=== PATIENT | male | born 1975 | race Caucasian/White ===

== ENCOUNTER 2020-06-06 08:32 | Inpatient (IN) ==
--- NOTE | 2020-06-06 08:55 | Emergency Department Note ---
History of Present Illness General Chief complaint: Illness Time Seen by Provider: 06/06/20 08:33 History of Present Illness Maximum Pain Intensity: 0 This is a 45-year-old male that presents to the emergency department via ambulance with complaints of "dyspnea on exertion". 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 He notes that he went from an urgent care, to [facility], then was transferred to [facility]. He notes that he was on a ventilator for about a month. He then was at several rehabilitation facilities and is currently at [facility]. He was doing well and able to walk about 100 feet until he felt short of breath. He then notes yesterday he was able to walk 50 feet and then was short of breath and now this morning just with getting ready/dressed notes that he was significantly short of breath, had an O2 sat of 70% while on his chronic 2 L of oxygen via nasal cannula. The patient denies any smoking history. The patient states that once he rests his symptoms dissipate. He denies any fevers, chills, nausea, vomiting or chest pain. Home Medications Medication Instructions Recorded Confirmed Type acetaminophen [Tylenol] 650 mg PO Q4H PRN 06/03/20 06/06/20 History apixaban 5 mg PO BID 06/03/20 06/06/20 History bisacodyl 10 mg FL DAILY PRN 06/03/20 06/06/20 History cholecalciferol (vitamin D3) 50 mcg PO DAILY 06/03/20 06/06/20 History diphenhydramine HCl 25 mg PO BID PRN 06/03/20 06/06/20 History docusate sodium 100 mg PO BID 06/03/20 06/06/20 History magnesium hydroxide [Milk of 30 ml PO DAILY PRN 06/03/20 06/06/20 History Magnesia] melatonin 6 mg PO HS 06/03/20 06/06/20 History metoprolol tartrate 75 mg PO BID 06/03/20 06/06/20 History multivitamin with minerals 1 tab PO DAILY 06/03/20 06/06/20 History [Multiple Vitamin-Minerals] pantoprazole 40 mg PO DAILYBB 06/03/20 06/06/20 History polyethylene glycol 3350 [Miralax] 17 g PO .QLUNCH PRN 06/03/20 06/06/20 History sennosides-docusate sodium 1 tab-cap PO .QLUNCH PRN 06/03/20 06/06/20 History [Senokot-S] trazodone 50 mg PO HS 06/03/20 06/06/20 History tamsulosin [Flomax] 0.4 mg PO HS 06/06/20 06/06/20 History Allergies Allergy/AdvReac Type Severity Reaction Status Date / Time No Known Allergies Allergy Unverified 06/06/20 08:45 Past Med/Surg History Medical History COVID-19 Kidney stones No pertinent family history Pneumonitis Pulmonary embolus Respiratory failure Surgical History No pertinent past surgical history Social History Smoking Status: Never smoker Hx Alcohol Use: No Hx Substance Use: No Preferred Language: Prydeinig Communication Ability: Effective Beliefs That Will Affect Care: None Current Living Situation: Family Current Living Situation Comment: from rehab Feels Safe at Home: Yes Safety Concerns: Feels Safe At This Time Assistive Devices: Oxygen - Continuous and Walker Review of Systems A total of 10 systems reviewed and were otherwise negative Physical Exam Vital Signs Vital Signs - 24 hr 06/06/20 08:37 06/06/20 08:40 06/06/20 08:50 Temperature 36.6 C Temperature Source Oral Pulse Rate 130 H 126 H Pulse Rate [Left Finger] Pulse Rate from SpO2 Sensor 120 H Pulse Rhythm Regular Pulse Rhythm [Left Finger] Respiratory Rate 18 25 H Respiratory Effort / Characteristics Short of Breath Respiratory Depth Blood Pressure 175/101 H 175/101 H Blood Pressure [Left Arm] Blood Pressure Mean 125 125 Blood Pressure Mean [Left Arm] Pulse Oximetry 90 89 L 94 Oxygen Delivery Method Room Air Nasal Cannula Oxygen Flow Rate 3 3 Sepsis Recent Fever Within 48 Hours No Sepsis New/Unexplained Change in Mental Status No Sepsis Action Taken by Nursing Adv Provider Notified 06/06/20 09:10 06/06/20 09:19 06/06/20 09:30 Temperature Temperature Source Pulse Rate 115 H 106 H 103 H Pulse Rate [Left Finger] Pulse Rate from SpO2 Sensor 106 H 101 H Pulse Rhythm Regular Pulse Rhythm [Left Finger] Respiratory Rate 23 25 H 26 H Respiratory Effort / Characteristics Respiratory Depth Blood Pressure 127/78 131/78 Blood Pressure [Left Arm] Blood Pressure Mean 94 95 Blood Pressure Mean [Left Arm] Pulse Oximetry 94 96 96 Oxygen Delivery Method Nasal Cannula Oxygen Flow Rate 3 3 3 Sepsis Recent Fever Within 48 Hours Sepsis New/Unexplained Change in Mental Status Sepsis Action Taken by Nursing 06/06/20 10:00 06/06/20 10:30 06/06/20 11:58 Temperature Temperature Source Pulse Rate 110 H 112 H Pulse Rate [Left Finger] 94 H Pulse Rate from SpO2 Sensor 109 H 111 H Pulse Rhythm Pulse Rhythm [Left Finger] Regular Respiratory Rate 12 21 30 H Respiratory Effort / Characteristics Non-Labored Respiratory Depth Shallow Blood Pressure 133/89 137/85 Blood Pressure [Left Arm] 127/91 Blood Pressure Mean 103 102 Blood Pressure Mean [Left Arm] 103 Pulse Oximetry 96 95 96 Oxygen Delivery Method Nasal Cannula Oxygen Flow Rate 3 3 2 Sepsis Recent Fever Within 48 Hours Sepsis New/Unexplained Change in Mental Status Sepsis Action Taken by Nursing VITAL SIGNS - Vital signs and nursing notes were reviewed. Hypertensive, tachycardic, tachypneic. Afebrile. Borderline hypoxic. GENERAL - 45-year-old male appearing his stated age who is in no acute distress but is mildly short of breath with conversation. Communicates well with provider and answers questions appropriately. SKIN - Without rashes. No meningeal or petechial rash. HEAD - NC/AT. EYES - PERRL with EOMI bilaterally. Sclera anicteric. EARS - No deformities of external structures noted on gross examination bilaterally. NOSE - Midline and without cyanosis. No epistaxis or purulent drainage noted. MOUTH/OROPHARYNX - Without perioral cyanosis. NECK - Neck with FROM. No nuchal rigidity. LUNGS - Chest wall symmetric without accessory muscle use, intercostals retractions, or central cyanosis. Normal vesicular breath sounds CTA B/L. No wheezes, rales, or rhonchi appreciated. CARDIAC - tachycardiac with S1/S2. No murmur, rubs, or gallops appreciated. ABDOMEN - Abdominal contour normal without pulsations or visible masses. BS n ormoactive all four quadrants. No tenderness, palpable masses, hepatosplenomegaly, or ascites noted. EXTREMITIES - No clubbing or peripheral cyanosis. No pretibial edema present. +5/5 strength noted in UE/LE bilaterally. NEUROLOGIC - Cranial nerves II through XII grossly intact. Sensory intact to li ght touch throughout. PSYCH - A&O, and cooperates fully with examiner. Pt is very pleasant and inte racts well with examiner. Course Administered Medications Discontinued Medications Meropenem 500 mg/ Syringe 10 mls @ 2 mls/min IV NOW STA; Protocol Stop: 06/06/20 12:21 Last Admin: 06/06/20 13:22 Dose: 2 mls/min Documented by: [id number] Ioversol (Optiray 320 125ml) 119 ml IV ONCE ONE Stop: 06/06/20 10:25 Last Admin: 06/06/20 10:24 Dose: 119 ml Documented by: [id number] Medical Decision Making Laboratory Data Result diagrams: 06/06/20 09:00 06/06/20 09:00 Lab Results 06/06/20 06/06/20 06/06/20 Range/Units 09:00 09:00 09:00 WBC 7.55 (4.8-10.8) K/uL RBC 4.20 L (4.7-6.1) M/uL Hgb 12.4 L (14.0-18.0) g/dL Hct 38.8 L (42-52) % MCV 92.4 (80-100) fL MCH 29.5 (25-34) pg MCHC 32.0 (32-36) g/dL RDW Std Deviation 47.3 H (36.4-46.3) fL RDW Coeff of Sara 14.0 (11.5-14.5) % Plt Count 229 (130-400) K/uL MPV 9.9 (7.4-10.4) fL Immature Gran % (Auto) 0.1 % Neut % (Auto) 74.6 % Lymph % (Auto) 14.7 % Roosevelt % (Auto) 6.8 % Eos % (Auto) 3.7 % Baso % (Auto) 0.1 % Neut # (Auto) 5.63 (1.4-6.5) K/uL Lymph # (Auto) 1.11 L (1.2-3.4) K/uL Roosevelt # (Auto) 0.51 (0.11-0.59) K/uL Eos # (Auto) 0.28 (0-0.5) K/uL Baso # (Auto) 0.01 (0-0.2) K/uL Immature Gran # (Auto) 0.01 (0.00-0.02) K/uL PT (9.0-12.0) Seconds INR (0.9-1.1) APTT (21.0-31.0) Seconds PTT Ratio Sodium (136-145) mmol/L Potassium (3.5-5.1) mmol/L Chloride (98-107) mmol/L Carbon Dioxide (21-32) mmol/L Anion Gap (3-11) BUN (7-18) mg/dl Creatinine (0.6-1.4) mg/dl Est Cr Clr Drug Dosing ml/min Est GFR ( Amer) Est GFR (Non-Af Amer) BUN/Creatinine Ratio (10-20) Glucose (70-99) mg/dl Lactate 2.7 H* (0.4-2.0) mmol/L Calcium (8.5-10.1) mg/dl Magnesium (1.8-2.4) mg/dl Total Bilirubin (0.2-1) mg/dl AST (15-37) U/L ALT (12-78) U/L Alkaline Phosphatase (45-117) U/L Troponin I (0-0.045) ng/ml NT-Pro-B Natriuret Pep (0-450) pg/ml Total Protein (6.4-8.2) gm/dl Albumin (3.4-5.0) gm/dl Globulin (2.5-4.0) gm/dl Albumin/Globulin Ratio (0.9-2) Procalcitonin < 0.05 (0-0.5) ng/ml TSH (0.300-4.500) uIu/ml COVID-19 Eval Order SARS-CoV-2, RNA, NAAT (NEGATIVE) 06/06/20 06/06/20 06/06/20 Range/Units 09:00 09:00 09:00 WBC (4.8-10.8) K/uL RBC (4.7-6.1) M/uL Hgb (14.0-18.0) g/dL Hct (42-52) % MCV (80-100) fL MCH (25-34) pg MCHC (32-36) g/dL RDW Std Deviation (36.4-46.3) fL RDW Coeff of Sara (11.5-14.5) % Plt Count (130-400) K/uL MPV (7.4-10.4) fL Immature Gran % (Auto) % Neut % (Auto) % Lymph % (Auto) % Roosevelt % (Auto) % Eos % (Auto) % Baso % (Auto) % Neut # (Auto) (1.4-6.5) K/uL Lymph # (Auto) (1.2-3.4) K/uL Roosevelt # (Auto) (0.11-0.59) K/uL Eos # (Auto) (0-0.5) K/uL Baso # (Auto) (0-0.2) K/uL Immature Gran # (Auto) (0.00-0.02) K/uL PT 10.3 (9.0-12.0) Seconds INR 1.0 (0.9-1.1) APTT 24.8 (21.0-31.0) Seconds PTT Ratio 0.9 Sodium 144 (136-145) mmol/L Potassium 3.1 L (3.5-5.1) mmol/L Chloride 109 H (98-107) mmol/L Carbon Dioxide 29 (21-32) mmol/L Anion Gap 6.0 (3-11) BUN 6 L (7-18) mg/dl Creatinine 0.48 L (0.6-1.4) mg/dl Est Cr Clr Drug Dosing 262.0 ml/min Est GFR ( Amer) > 150.0 Est GFR (Non-Af Amer) 135.0 BUN/Creatinine Ratio 12.3 (10-20) Glucose 122 H (70-99) mg/dl Lactate (0.4-2.0) mmol/L Calcium 8.9 (8.5-10.1) mg/dl Magnesium 1.7 L (1.8-2.4) mg/dl Total Bilirubin 0.4 (0.2-1) mg/dl AST 16 (15-37) U/L ALT 30 (12-78) U/L Alkaline Phosphatase 51 (45-117) U/L Troponin I < 0.015 (0-0.045) ng/ml NT-Pro-B Natriuret Pep 59 (0-450) pg/ml Total Protein 6.8 (6.4-8.2) gm/dl Albumin 2.9 L (3.4-5.0) gm/dl Globulin 3.9 (2.5-4.0) gm/dl Albumin/Globulin Ratio 0.7 L (0.9-2) Procalcitonin (0-0.5) ng/ml TSH 1.020 (0.300-4.500) uIu/ml COVID-19 Eval [facility] SARS-CoV-2, RNA, NAAT (NEGATIVE) 06/06/20 06/06/20 Range/Units 09:00 10:45 WBC (4.8-10.8) K/uL RBC (4.7-6.1) M/uL Hgb (14.0-18.0) g/dL Hct (42-52) % MCV (80-100) fL MCH (25-34) pg MCHC (32-36) g/dL RDW Std Deviation (36.4-46.3) fL RDW Coeff of Sara (11.5-14.5) % Plt Count (130-400) K/uL MPV (7.4-10.4) fL Immature Gran % (Auto) % Neut % (Auto) % Lymph % (Auto) % Roosevelt % (Auto) % Eos % (Auto) % Baso % (Auto) % Neut # (Auto) (1.4-6.5) K/uL Lymph # (Auto) (1.2-3.4) K/uL Roosevelt # (Auto) (0.11-0.59) K/uL Eos # (Auto) (0-0.5) K/uL Baso # (Auto) (0-0.2) K/uL Immature Gran # (Auto) (0.00-0.02) K/uL PT (9.0-12.0) Seconds INR (0.9-1.1) APTT (21.0-31.0) Seconds PTT Ratio Sodium (136-145) mmol/L Potassium (3.5-5.1) mmol/L Chloride (98-107) mmol/L Carbon Dioxide (21-32) mmol/L Anion Gap (3-11) BUN (7-18) mg/dl Creatinine (0.6-1.4) mg/dl Est Cr Clr Drug Dosing ml/min Est GFR ( Amer) Est GFR (Non-Af Amer) BUN/Creatinine Ratio (10-20) Glucose (70-99) mg/dl Lactate 1.7 (0.4-2.0) mmol/L Calcium (8.5-10.1) mg/dl Magnesium (1.8-2.4) mg/dl Total Bilirubin (0.2-1) mg/dl AST (15-37) U/L ALT (12-78) U/L Alkaline Phosphatase (45-117) U/L Troponin I (0-0.045) ng/ml NT-Pro-B Natriuret Pep (0-450) pg/ml Total Protein (6.4-8.2) gm/dl Albumin (3.4-5.0) gm/dl Globulin (2.5-4.0) gm/dl Albumin/Globulin Ratio (0.9-2) Procalcitonin (0-0.5) ng/ml TSH (0.300-4.500) uIu/ml COVID-19 Eval Order SARS-CoV-2, RNA, NAAT NEGATIVE (NEGATIVE) Imaging Data Radiologist's Impression: CT ANGIOGRAM OF THE CHEST CLINICAL HISTORY: Dyspnea on exertion. Tachycardia. COMPARISON STUDY: Abdominal CT dated 06/03/2020. TECHNIQUE: Following the IV administration of 119 cc of Optiray 320, CT angiogra m of the chest was performed from the upper abdomen to the thoracic inlet utilizing the pulmonary embolus protocol. Images are reviewed in the axial, sagittal, and coronal planes. 3-D MIPS images are created and assessed. IV contrast was administered without complication. A dose lowering technique was utilized adhering to the principles of ALARA. CT DOSE: 507.29 mGycm FINDINGS: Thyroid: Imaged portions of the thyroid gland are normal in size and attenuation. Thoracic aorta: The thoracic aorta is normal in caliber and demonstrates standard 3-vessel arch anatomy. No dissection is seen. Pulmonary vasculature: The pulmonary trunk is normal in caliber. There are no filling defects identified in main, lobar, or segmental pulmonary branches to suggest pulmonary embolus. Heart: The heart is top normal in size and without pericardial effusion. Lungs and pleural spaces: Evaluation of the lung parenchyma is degraded by motion artifact. Emphysematous change is suggested with a large left apical bleb. There is trace left pleural effusion. Patchy groundglass consolidation is seen throughout both lungs. This appears increased as compared to the 06/03/[address] A 4.2 cm ovoid low-attenuation lesion is seen in the right middle lobe on image #122. This is similar appearance to 06/03/2020 and again shows foci of internal cavitation. A cavitary lesion at the left lung base on image #62 measuring 2.3 cm also similar to previous. A 2.8 cm similar-appearing non- cavitating lesion in the anterior/basilar right middle lobe on image #98 is also unchanged. Subpleural parenchymal scarring/opacities are again seen throughout both lungs. More focal 1.5 cm opacity in the left upper lobe as seen on image #156. There is no associated cavitation. Mediastinum: Scattered subcentimeter mediastinal lymph nodes are not pathologically enlarged by size criteria. Marielena: Clear. Axillae: There is no axillary lymphadenopathy. Upper abdomen: Partially visualized upper abdominal viscera is within normal limits. Skeletal structures: No lytic or blastic bony lesions are seen. Posttraumatic change is seen involving the right third and fourth ribs. IMPRESSION: 1. There is no evidence of pulmonary embolus in the main, lobar, or segmental pulmonary arteries. 2. Suspect underlying emphysema. 3. There is increasing groundglass consolidation throughout both lungs as compared to 06/03/[address] This suggests an infectious/inflammatory pneumonitis and clinical correlation will be required. 4. There has been no significant change in the appearance of 3 large ovoid low density lesions at both lung bases, 2 of which demonstrate foci of internal cavitation. These are likely on an infectious/postinfectious basis (such as cavitary pneumonia), or could represent the sequelae of septic emboli. Neoplasm is considered less likely but not excluded. Continued follow-up to resolution is recommended, as is follow-up with pulmonology. 5. A trace left pleural effusion persists. 6. Additional findings as above. ACT 112: Negative or not required by law. Electronically signed by: Marquis Nguyen M.D. 06/06/2020 10:44 AM MDM Narrative Patient was seen and evaluated as above in room C02. Review was performed of nursing notes and vital signs. I did review pertinent previous visits and patient history. After obtaining a thorough history and physical examination the above work up was performed. Patient presents to us today with hypoxia, dyspnea on exertion with simple activities such as ADLs which is changed from his baseline. On examination he does appear short of breath, is tachycardic. Options of care were discussed with the patient. IV access was established. Labs were drawn. EKG was obtained on arrival and reveals sinus tachycardia rate of [address] elevation. No leukocytosis. Mild anemia with h emoglobin at 12.4. Mild hypokalemia. No evidence of kidney or liver failure. Magnesium 1.7. Covid testing negative. Pro-Albert within normal limits. Initial lactic acid was elevated however recheck was within normal limits. Blood cultures pending. Given the patient's presentation to believe that CT of the chest would be reasonable. There is no PE. There is increase in groundglass consolidation within both lungs compared to CT scan abdomen pelvis performed 06/03/2020. With this change in such a short period of time to believe that further evaluation and management inpatient setting is warranted given the patient's symptoms on presentation. Case discussed with the hospitalist. I did order the patient meropenem as I will note that he [facility] [place] of which I reviewed. Please refer to further documentation regarding his stay. Case was discussed with the attending physician. An order was placed for continuous cardiac monitoring. The monitor shows a rate of 101 with sinus tach rhythm. GCS: 15 In the evaluation and treatment of this patient the following differential diagnoses were entertained: IN, PE, pericarditis, costochondritis, myocarditis, pneumothorax, malignancy, among others. Impression & Plan Pneumonitis, Hypoxia, Dyspnea on exertion, Hypomagnesemia, Hypokalemia Discharge Plan Visit Data Chief Complaint: Illness ED Provider: Sammy Jeong ED Midlevel Provider: Clyde Hernandez Discharge Problem: Pneumonitis, Hypoxia, Dyspnea on exertion, Hypomagnesemia, Hypokalemia Patient Disposition: Admitted As Inpatient Condition: Good Discharge Instructions Interventions: ED Discharge Assessment Last Done: 06/06/20 14:24
[2020-06-06 09:17] LABS: Basophils # (auto) 0.01 K/uL (0-0.2); Basophils % (auto) 0.1 %; Eosinophils # (auto) 0.28 K/uL (0-0.5); Eosinophils % (auto) 3.7 %; Hematocrit (blood only) 38.8 % (42-52); Hemoglobin 12.4 g/dL (14.0-18.0); Immature Granulocytes # (auto) 0.01 K/uL (0.00-0.02); Immature Granulocytes % (auto) 0.1 %; Lymphocytes # (auto) 1.11 K/uL (1.2-3.4); Lymphocytes % (auto) 14.7 %; Mean Corpuscular Hemoglobin 29.5 pg (25-34); Mean Corpuscular Volume 92.4 fL (80-100); Mean Platelet Volume 9.9 fL (7.4-10.4); Monocytes # (auto) 0.51 K/uL (0.11-0.59); Monocytes % (auto) 6.8 %; Neutrophils # (auto) 5.63 K/uL (1.4-6.5); Neutrophils % (auto) 74.6 %; Platelet Count 229 K/uL (130-400); RDW Standard Deviation 47.3 fL (36.4-46.3); White Blood Count 7.55 K/uL (4.8-10.8)
[2020-06-06 09:30] LABS: Partial Thromboplastin Ratio 0.9; Partial Thromboplastin Time 24.8 Seconds (21.0-31.0); Prothrombin Time 10.3 Seconds (9.0-12.0)
[2020-06-06 09:35] LABS: Albumin Level 2.9 gm/dl (3.4-5.0); Blood Urea Nitrogen 6 mg/dl (7-18); Calcium 8.9 mg/dl (8.5-10.1); Carbon Dioxide 29 mmol/L (21-32); Chloride 109 mmol/L (98-107); Glucose 122 mg/dl (70-99); Magnesium 1.7 mg/dl (1.8-2.4); Potassium 3.1 mmol/L (3.5-5.1); Sodium 144 mmol/L (136-145)
[2020-06-06 09:36] LABS: Aspartate Aminotransferase 16 U/L (15-37); BUN Creatinine Ratio 12.3 (10-20); Est GFR (African American) > 150.0
[2020-06-06 09:46] LABS: Alanine Aminotransferase 30 U/L (12-78); Albumin Globulin Ratio 0.7 (0.9-2); Alkaline Phosphatase 51 U/L (45-117); Bilirubin,Total 0.4 mg/dl (0.2-1); Globulin 3.9 gm/dl (2.5-4.0); NT Pro B Type Natriuretic Pept 59 pg/ml (0-450); Total Protein 6.8 gm/dl (6.4-8.2); Troponin I < 0.015 ng/ml (0-0.045)
[2020-06-06] MEDS ORDERED: OPTIRAY 320 125ml IV ONE (10:24)
--- NOTE | 2020-06-06 10:46 | CT Scan Report ---
CT ANGIOGRAM OF THE CHEST CLINICAL HISTORY: Dyspnea on exertion. Tachycardia. COMPARISON STUDY: Abdominal CT dated 06/03/2020. TECHNIQUE: Following the IV administration of 119 cc of Optiray 320, CT angiogram of the chest was pe rformed from the upper abdomen to the thoracic inlet utilizing the pulmonary embolus protocol. Images are reviewed in the axial, sagittal, and coronal planes. 3-D MIPS images are created and assessed. I V contrast was administered without complication. A dose lowering technique was utilized adhering to the principles of ALARA. CT DOSE: 507.29 mGycm FINDINGS: Thyroid: Imaged portions of the thyroid gland are normal in size and attenuation. Thoracic aorta: The thoracic aorta is normal in caliber and demonstrates standard 3-vessel arch anato my. No dissection is seen. Pulmonary vasculature: The pulmonary trunk is normal in caliber. There are no filling defects identif ied in main, lobar, or segmental pulmonary branches to suggest pulmonary embolus. Heart: The heart is top normal in size and without pericardial effusion. Lungs and pleural spaces: Evaluation of the lung parenchyma is degraded by motion artifact. Emphysema tous change is suggested with a large left apical bleb. There is trace left pleural effusion. Patchy groundglass consolidation is seen throughout both lungs. This appears increased as compared to the 02/[address] A 4.2 cm ovoid low-attenuation lesion is seen in the right middle lobe on image #122. This is similar appearance to 06/03/2020 and again shows foci of internal cavitation. A cavitar y lesion at the left lung base on image #62 measuring 2.3 cm also similar to previous. A 2.8 cm simil ar-appearing non-cavitating lesion in the anterior/basilar right middle lobe on image #98 is also unc hanged. Subpleural parenchymal scarring/opacities are again seen throughout both lungs. More focal 1. 5 cm opacity in the left upper lobe as seen on image #156. There is no associated cavitation. Mediastinum: Scattered subcentimeter mediastinal lymph nodes are not pathologically enlarged by size criteria. Marielena: Clear. Axillae: There is no axillary lymphadenopathy. Upper abdomen: Partially visualized upper abdominal viscera is within normal limits. Skeletal structures: No lytic or blastic bony lesions are seen. Posttraumatic change is seen involvin g the right third and fourth ribs. IMPRESSION: 1. There is no evidence of pulmonary embolus in the main, lobar, or segmental pulmonary arteries. 2. Suspect underlying emphysema. 3. There is increasing groundglass consolidation throughout both lungs as compared to 06/03/[address] This suggests an infectious/inflammatory pneumonitis and clinical correlation will be requir ed. 4. There has been no significant change in the appearance of 3 large ovoid low density lesions at bot h lung bases, 2 of which demonstrate foci of internal cavitation. These are likely on an infectious/p ostinfectious basis (such as cavitary pneumonia), or could represent the sequelae of septic emboli. N eoplasm is considered less likely but not excluded. Continued follow-up to resolution is recommended, as is follow-up with pulmonology. 5. A trace left pleural effusion persists. 6. Additional findings as above. ACT 112: Negative or not required by law. Electronically signed by: Marquis Nguyen M.D. 06/06/2020 10:44 AM
[2020-06-06] MEDS ORDERED: MEROPENEM 500 MG in SYRINGE 0 ML IV STA (12:17)
[2020-06-06] MEDS ORDERED: MEROPENEM CONSULT ACITVE PRN (12:17)
--- NOTE | 2020-06-06 12:46 | History & Physical Report ---
Date of Service June 06, 2020 Assessment & Plan (1) Acute respiratory failure with hypoxia: -Admit to [facility] -Patient found to be hypoxic on 2 L with O2 sats in the 70s, use of accessory muscles, heart rate elevated into the 130s and 140s on arrival to the ER -Patient was previously treated with meropenem for possible lung abscess during his [facility] stay, started meropenem here in the ER, continue for now, then likely can dc -Afebrile, WBC = 7.55, lactic acid 1.7, follow BCx x 2 -COVID-19 negative on admission -Flutter, incentive spirometry -Start on prednisone 40 mg daily for suspected pneumonitis, O2 sats mid 90s at bedside during exam. -Mag 1.7, will replace with IV -CTA negative for PE, suspected underlying emphysema, increasing groundglass consolidation throughout both lungs compared to 06/03/2020, trace left pleural effusion which is known from previously. -Pulmonology consulted (2) History of COVID-19: -History of such in late February early March, see HPI -Negative on admission (3) Pneumonia due to COVID-19 virus: -Status post IV meropenem x 2+ weeks, last dose was on May 06 from [facility]. -CTA of the chest reviewed as above, concerning for pneumonitis (4) Obesity: -Patient reports weight loss of approximately 70 pounds -BMI 35 -Encourage PT/OT, consults placed, ambulating with a walker after prolonged hospitalization (5) Pulmonary embolus: -History of such, continue Eliquis -Patient placed on metoprolol 75 mg twice daily for heart rate control, continue, HR remains in 90s during my eval and with strength testing and sitting up in bed. - Neg troponin, trend x 2 more sets (6) Hypomagnesemia: -1.7 on admission, will replace via IV with 2 g to start, may require additional. -Possible that replacement may improve respiratory status (7) Hypokalemia: -K = 3.1, replace orally -Follow a.m. labs (8) DVT prophylaxis: - Clem toth CODE: Full code Dispo: From home, likely to remain in the hospital x 2 days. CM to assist with discharge planning back to [facility]. History of Present Illness Primary Care Provider: Torito Bhatt, DO This is a 45-year-old male with PMHx of history of COVID-19 infection in late February into March, works in the [email or web address] business, and admits that on April 03 accidentally inhaled metal particles while working without wearing respiratory mask, causing respiratory sequelae. After that point in time, he [facility], where he was referred to [facility] where he was then diagnosed with Covid 19 and was sent to [place] subsequently requiring intubation. His hospital course was prolonged at [facility], where he was hospitalized from 04/08-05/07. He was found to have a suspected lung abscess which was treated with meropenem x3 weeks,, developed pulmonary embolism and started on Eliquis needing to be given x3 months, and completed treatment with remdesivir, Decadron and antibiotics for COVID-19 pneumonia. During his hospitalization, extubated trialed on 3 separate trials, successful the last time. He was discharged to [facility] for pulmonary rehab. After 2 week stay there he was discharged for inpatient PT/OT. The patient arrived to [facility] on 05/27/20, and has been doing inpatient rehab there. He was very successful and advancing well until last Saturday, 06/03, where he developed Left flank pain, was sent to the ER and diagnosed with a kidney stone. His pain is minimal at this point, localized to the LLQ. No hematuria or dysuria, urine is slightly dark. He was sent back to [facility] for the weekend however did not participate in therapy on Saturday. On Saturday he noticed worsening dyspnea on exertion. Previously, he able to walk 100 feet without feeling any significant shortness of breath with a walker. This morning he was evaluated by OT and being graded for ADLs, but he was barely able to dress himself without significant exertion. His O2 sats dropped to the 70s while he was on 2 L via NC. Here in the ER he is found to be 89% on 2 L with heart rates in the 130s to 140s with minimal exertion. CTA conducted shows groundglass opacities despite previous treatment therapies, it was negative for PE however does identify old septic pulmonary emboli. CT abdomen and pelvis reveals known nephrolithiasis. Speaking of this, he was in the ER approximately 3 days ago where he was diagnosed with nephrolithiasis. He has been treated with meropenem IV here in the ER. Allergies Allergy/AdvReac Type Severity Reaction Status Date / Time No Known Allergies Allergy Unverified 06/06/20 08:45 Home Medications Medication Instructions Recorded Confirmed Type acetaminophen [Tylenol] 650 mg PO Q4H PRN 06/03/20 06/06/20 History apixaban 5 mg PO BID 06/03/20 06/06/20 History bisacodyl 10 mg [place] DAILY PRN 06/03/20 06/06/20 History cholecalciferol (vitamin D3) 50 mcg PO DAILY 06/03/20 06/06/20 History diphenhydramine HCl 25 mg PO BID PRN 06/03/20 06/06/20 History docusate sodium 100 mg PO BID 06/03/20 06/06/20 History magnesium hydroxide [Milk of 30 ml PO DAILY PRN 06/03/20 06/06/20 History Magnesia] melatonin 6 mg PO HS 06/03/20 06/06/20 History metoprolol tartrate 75 mg PO BID 06/03/20 06/06/20 History multivitamin with minerals 1 tab PO DAILY 06/03/20 06/06/20 History [Multiple Vitamin-Minerals] pantoprazole 40 mg PO DAILYBB 06/03/20 06/06/20 History polyethylene glycol 3350 [Miralax] 17 g PO .QLUNCH PRN 06/03/20 06/06/20 History sennosides-docusate sodium 1 tab-cap PO .QLUNCH PRN 06/03/20 06/06/20 History [Senokot-S] trazodone 50 mg PO HS 06/03/20 06/06/20 History tamsulosin [Flomax] 0.4 mg PO HS 06/06/20 06/06/20 History Past Med/Surg History Medical History (Updated 06/06/20 @ 16:54 by Garry Wooten MD) COVID-19 Kidney stones Lung abscess No pertinent family history Pneumonitis Pulmonary embolus Respiratory failure Surgical History No pertinent past surgical history Social History Smoking Status: Never smoker Hx Alcohol Use: No Hx Substance Use: No Preferred Language: Arabic Communication Ability: Effective Beliefs That Will Affect Care: None Current Living Situation: Family Current Living Situation Comment: from rehab Feels Safe at Home: Yes Safety Concerns: Feels Safe At This Time Assistive Devices: Oxygen - Continuous and Walker Review of Systems Review of Systems: Constitutional: No fever, sweats or chills, Reports 70 lb weight loss since Mar. Eyes: No diplopia, no worsening or blurred vision ENT: normal hearing, no trouble swallowing Respiratory:As per HPI. Occasional cough, no sputum, no dyspnea at rest Cardiovascular: No chest pain, tightness or palpitations Abdomen: No pain, nausea, vomiting, diarrhea or constipation. Typically has 2-3 BM daily, last time was on 06/05 Musculoskeletal: No joint pain, calf pain, or swelling Neurologic: +Improving LE weakness, +numbness/tingling improved with gabapentin,+ using walker for balance problems Psychiatric: No anxiety or depression Skin: No rash or itch Physical Exam Physical Exam: General: awake, alert, no apparent distress, obese, BMI 35 Head: Normocephalic, atraumatic ENT: PERRL, EOMI, no pharyngeal exudate, mucous membranes moist Chest: Clear to auscultation. diminished at left base, on 2 L via NC with O2 sat at 96%, no adventitious breath sounds Cardiac: Regular rate and rhythm, no murmur, no JVD, normal peripheral pulses, good capillary refill Abdominal: NABS x 4 quadrants, soft, nondistended, nontender to palpation, no rebound or guarding Extremities: Normal inspection, no peripheral edema or erythema, calfs nontender to palpation Psych: Normal mood and affect Neuro: AAO x 3, strength intact bilaterally and rated 5/5, no motor deficits, speech is clear, no peripheral sensory deficits Results & Data Results & Data ([facility]) Vital Signs (Past 12 Hours) Vital Signs Temp Pulse Pulse Resp BP BP Pulse Ox 06/06/20 11:58 94 H 30 H 127/91 96 06/06/20 10:30 112 H 21 137/85 95 06/06/20 10:00 110 H 12 133/89 96 06/06/20 09:30 103 H 26 H 131/78 96 06/06/20 09:19 106 H 25 H 127/78 96 06/06/20 09:10 115 H 23 94 06/06/20 08:50 94 06/06/20 08:40 36.6 C 126 H 25 H 175/101 H 89 L 06/06/20 08:37 130 H 18 175/[address] ANGIOGRAM OF THE CHEST CLINICAL HISTORY: Dyspnea on exertion. Tachycardia. COMPARISON STUDY: Abdominal CT dated 06/03/2020. TECHNIQUE: Following the IV administration of 119 cc of Optiray 320, CT angiogram of the chest was performed from the upper abdomen to the thoracic inlet utilizing the pulmonary embolus protocol. Images are reviewed in the axial, sagittal, and coronal planes. 3-D MIPS images are created and assessed. IV contrast was administered without complication. A dose lowering technique was utilized adhering to the principles of ALARA. CT DOSE: 507.29 mGycm FINDINGS: Thyroid: Imaged portions of the thyroid gland are normal in size and attenuation. Thoracic aorta: The thoracic aorta is normal in caliber and demonstrates standard 3-vessel arch anatomy. No dissection is seen. Pulmonary vasculature: The pulmonary trunk is normal in caliber. There are no filling defects identified in main, lobar, or segmental pulmonary branches to suggest pulmonary embolus. Heart: The heart is top normal in size and without pericardial effusion. Lungs and pleural spaces: Evaluation of the lung parenchyma is degraded by motion artifact. Emphysematous change is suggested with a large left apical bleb. There is trace left pleural effusion. Patchy groundglass consolidation is seen throughout both lungs. This appears increased as compared to the 06/03/[address] A 4.2 cm ovoid low-attenuation lesion is seen in the right middle lobe on image #122. This is similar appearance to 06/03/2020 and again shows foci of internal cavitation. A cavitary lesion at the left lung base on image #62 measuring 2.3 cm also similar to previous. A 2.8 cm similar-appearing non- cavitating lesion in the anterior/basilar right middle lobe on image #98 is also unchanged. Subpleural parenchymal scarring/opacities are again seen throughout both lungs. More focal 1.5 cm opacity in the left upper lobe as seen on image #156. There is no associated cavitation. Mediastinum: Scattered subcentimeter mediastinal lymph nodes are not pathologically enlarged by size criteria. Marielena: Clear. Axillae: There is no axillary lymphadenopathy. Upper abdomen: Partially visualized upper abdominal viscera is within normal limits. Skeletal structures: No lytic or blastic bony lesions are seen. Posttraumatic change is seen involving the right third and fourth ribs. IMPRESSION: 1. There is no evidence of pulmonary embolus in the main, lobar, or segmental pulmonary arteries. 2. Suspect underlying emphysema. 3. There is increasing groundglass consolidation throughout both lungs as compared to 06/03/[address] This suggests an infectious/inflammatory pneumonitis and clinical correlation will be required. 4. There has been no significant change in the appearance of 3 large ovoid low density lesions at both lung bases, 2 of which demonstrate foci of internal cavitation. These are likely on an infectious/postinfectious basis (such as cavitary pneumonia), or could represent the sequelae of septic emboli. Neoplasm is considered less likely but not excluded. Continued follow-up to resolution is recommended, as is follow-up with pulmonology. 5. A trace left pleural effusion persists. 6. Additional findings as above. CT SCAN OF THE ABDOMEN AND PELVIS WITHOUT IV CONTRAST CLINICAL HISTORY: Left flank pain. COMPARISON STUDY: No priors. TECHNIQUE: CT scan of the abdomen and pelvis is performed from the lung bases to the proximal femora. Images are reviewed in the axial, sagittal, and coronal planes. IV contrast was not administered for this examination. A dose lowering technique was utilized adhering to the principles of ALARA. CT DOSE: 1372.74 mGy.cm FINDINGS: Lung bases: The heart is normal in size and without pericardial effusion. There is trace left pleural effusion. Subpleural groundglass change is seen at both lung bases with foci of subpleural parenchymal scarring. There is a 4.5 cm low- attenuation ovoid lesion in the right middle lobe with cavitation seen on image #6. An additional 3.1 cm low-attenuation ovoid lesion in the right middle lobe on image #29 does not show cavitation. A 2.6 cm cavitary nodule is suggested at the posterior left lung base on image #79 Liver: The unenhanced liver is normal in size, contour, and attenuation. There is no intrahepatic biliary ductal dilatation. Gallbladder: Surgically absent noting clips in the gallbladder fossa. Spleen: Normal in size and attenuation. Pancreas: Unremarkable. Adrenal glands: Unremarkable. Kidneys: The unenhanced kidneys are normal in size. There is a 3 mm obstructing calculus in the distal left ureter seen just above the vesicoureteral junction on image #465. This causes mild left hydroureteronephrosis. There is an additional 5 mm nonobstructing left renal calculus. No right renal calculi are identified and there is no right-sided hydronephrosis. There is no evidence of contour deforming renal mass lesion. Abdominal vasculature: The abdominal aorta is normal in course and caliber. Bowel: There is no bowel obstruction. The appendix is well-visualized and normal. Peritoneum: There is no intraperitoneal free air or abdominal ascites. There is a fat-containing umbilical hernia. Lymphadenopathy: None. Pelvic viscera: The bladder, prostate, and seminal vesicles are normal as visualized. There are small bilateral fat-containing inguinal hernias. Skeletal structures: No lytic or blastic lesions are seen. IMPRESSION: 1. There is a 3 mm obstructing calculus in the distal left ureter which causes mild left hydroureteronephrosis. 2. There is an additional nonobstructing left renal calculus. 3. No right renal calculi are identified. 4. There is groundglass change with foci of subpleural parenchymal scarring at both lung bases. This may represent an infectious/inflammatory pneumonitis, or possibly the sequelae of a recent viral pneumonia. Clinical correlation will be essential. 5. There are 3 large ovoid low density lesions at both lung bases, 2 of which demonstrate foci of internal cavitation. These may also be on an infectious /postinfectious basis (cavitary pneumonia), or could potentially represent septic emboli. Neoplasm is considered much less likely but not excluded. Clinical correlation will be essential, and follow-up to resolution is recommended. Consider nonemergent pulmonology consultation. 6. Trace left pleural effusion. 7. Additional findings as above. ECG Additional Comments: 06-JUN-2020 08:36:53 [facility]-EDSTAT ROUTINE RETRIEVAL Poor data quality, interpretation may be adversely affected Sinus tachycardia Left ventricular hypertrophy with repolarization abnormality Abnormal ECG When compared with ECG of 03-JUN-2020 20:42, No significant change was found 25mm/s 10mm/mV 150Hz 9.0.9 12SL 241 ROBERTO: 16 Unconfirmed Vent. rate 123 BPM TX interval 144 ms QRS duration 84 ms QT/QTc 322/460 ms Code Status & VTE Plan Code Status Full -discussed with the patient and his at bedside Supervising Physician Co-Signing Physician Notes I have seen and examined the patient and have discussed the case with the provider above. I agree with the assessment and plan as stated. 45 yo M with prolonged hospitalization and complicated pulmonary situation presented with worsening hypoxia, SOB with exertion and worsening ground glass opacities seen on bilateral lung bases on CTA. (see supplemental notes) Physical exam reveals an obese man in no distress without increased work of breathing and no conversational dyspnea. Lungs are CTAB, heart rate is regular, S1/2 heard without murmurs. Abdomen benign. No edema. Euvolemic. Plan to transfer to [facility]. DO Adán
[2020-06-06] MEDS ORDERED: POTASSIUM CHLORIDE CRTAB 20 MEQ TABCR PO STA (13:34)
[2020-06-06] MEDS ORDERED: predniSONE 20 MG TAB PO SCH (13:45)
[2020-06-06] MEDS ORDERED: POLYETHYLENE (MIRALAX) 17 GM PACK PO PRN (14:23)
[2020-06-06] MEDS ORDERED: diphenhydrAMINE Capsule 25 MG CAP PO PRN (14:23)
[2020-06-06] MEDS ORDERED: bisacodyL 10 MG SUPP PR PRN (14:23)
[2020-06-06] MEDS ORDERED: MAGNESIUM HYDROXIDE SUSP 30 ML UDC PO PRN (14:23)
[2020-06-06] MEDS ORDERED: ACETAMINOPHEN 325 MG TAB PO PRN (14:23)
[2020-06-06] MEDS ORDERED: ONDANSETRON INJ 2 MG/ML 2 ML VIAL IV PRN (14:23)
[2020-06-06] MEDS ORDERED: DOCUSATE SODIUM/SENNA 50/8.6MG TAB PO SCH (15:00)
[2020-06-06] MEDS: MAGNESIUM SULFATE / D5W 1 GM/100 ML BAG IV SCH ×2 (15:59→18:15)
--- NOTE | 2020-06-06 16:49 | Pulmonary Consultation ---
Date of Consultation June 06, 2020 Assessment & Plan (1) Acute respiratory failure with hypoxia: 45-year-old male with a past medical history of recent COVID-19 illness, pulmonary embolism, obesity, septic emboli, spontaneous pneumothorax, prolonged ICU hospitalization, critical illness myopathy and hypertension presenting to the hospital due to shortness of breath. I suspect the patient's symptoms are multifactorial related to the groundglass opacities seen on CT chest, recent multifocal pulmonary emboli, obesity, severe deconditioning and multifocal lung abscess. Lung abscesses: Would recommend infectious disease consultation. Obtain blood cultures and echocardiogram. Continue meropenem. MRSA screen (-). There is a pleural effusion noted on the left which is trace. It is unclear whether this is infected and represents an empyema. Patient may need aspiration of a lung abscess to help determine specific antibiotic therapy. This will need to occur in a tertiary care center such as [facility] in [place]. I did discuss the case with thoracic surgery who did not feel that surgery is warranted at this time unless there is timothy evidence of empyema. Groundglass attenuation diffuse/pneumonitis: Unclear etiology, but likely resolving COVID-19 pneumonitis. Heavy metal pneumonitis/hypersensitivity pneumonitis difficult to rule out. Patient may require a lung biopsy to help determine the etiology of the groundglass opacity. Bronchoscopy can be considered prior to biopsy to rule out further infectious etiology. Would hold on any further steroids at this point given the concern for acute bacterial infection. Severe deconditioning critical illness myopathy: Continue physical therapy and Occupational Therapy. Likely secondary to prolonged hospitalization. History of pulmonary embolism: Would recommend 3 to 6 months of anticoagulation. Likely provoked from his hypercoagulable state related to COVID-19. I had a lengthy discussion with the patient and his . I also had a lengthy discussion with patient's hospitalist and thoracic surgery in [place]. I did recommend a multidisciplinary approach at a tertiary Medical Center at this time. (2) Dyspnea on exertion: (3) Hypoxia: (4) Pulmonary embolus: Pulmonary embolism type: other Chronicity: chronic Acute cor pulmonale presence: unspecified Qualified Code(s): I27.82 - Chronic pulmonary embolism (5) Obesity: Obesity type: due to excess calories Body mass index: BMI 33.0- 33.9 Serious obesity comorbidity presence: with serious comorbidity (6) Pneumonia due to COVID-19 virus: (7) Pneumonitis: (8) Lung abscess: History of Present Illness Reason for Consultation: Multifocal pulmonary abscess Attending Physician: Laura Mccain DO History of Present Illness 45-year-old male with a past medical history of obesity presenting to the hospital due to increasing shortness of breath and fatigue. Notably, the patient had a lengthy hospitalization at [facility] in [facility] for acute COVID-19 infection, right spontaneous pneumothorax, right-sided lung abscess, critical illness myopathy and pulmonary embolism. He was also intubated for an extended period of time. Fortunately, he did not require tracheostomy. Notably he had an iatrogenic placement of a pneumothorax catheter subdiaphragm on 04/17 which was then replaced without incident. Patient does not recall much of the history from [facility]. His is present today. I was able to review the records from [facility]. He did have extensive groundglass changes with a spontaneous right pneumo on the CT chest from 04/17. 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 He denies any tobacco use. No exotic pet exposures including birds. Allergies Allergy/AdvReac Type Severity Reaction Status Date / Time No Known Allergies Allergy Unverified 06/06/20 08:45 Home Medications Medication Instructions Recorded Confirmed Type acetaminophen [Tylenol] 650 mg PO Q4H PRN 06/03/20 06/06/20 History apixaban 5 mg PO BID 06/03/20 06/06/20 History bisacodyl 10 mg LA DAILY PRN 06/03/20 06/06/20 History cholecalciferol (vitamin D3) 50 mcg PO DAILY 06/03/20 06/06/20 History diphenhydramine HCl 25 mg PO BID PRN 06/03/20 06/06/20 History docusate sodium 100 mg PO BID 06/03/20 06/06/20 History magnesium hydroxide [Milk of 30 ml PO DAILY PRN 06/03/20 06/06/20 History Magnesia] melatonin 6 mg PO HS 06/03/20 06/06/20 History metoprolol tartrate 75 mg PO BID 06/03/20 06/06/20 History multivitamin with minerals 1 tab PO DAILY 06/03/20 06/06/20 History [Multiple Vitamin-Minerals] pantoprazole 40 mg PO DAILYBB 06/03/20 06/06/20 History polyethylene glycol 3350 [Miralax] 17 g PO .QLUNCH PRN 06/03/20 06/06/20 History sennosides-docusate sodium 1 tab-cap PO .QLUNCH PRN 06/03/20 06/06/20 History [Senokot-S] trazodone 50 mg PO HS 06/03/20 06/06/20 History tamsulosin [Flomax] 0.4 mg PO HS 06/06/20 06/06/20 History Patient History Medical History COVID-19 Kidney stones No pertinent family history Pneumonitis Pulmonary embolus Respiratory failure Surgical History No pertinent past surgical history Social History Smoking Status: Never smoker Hx Alcohol Use: No Hx Substance Use: No Preferred Language: Paraguayan Communication Ability: Effective Beliefs That Will Affect Care: None Current Living Situation: Family Current Living Situation Comment: from rehab Feels Safe at Home: Yes Safety Concerns: Feels Safe At This Time Assistive Devices: Oxygen - Continuous and Walker Review of Systems Review of Systems: All systems reviewed & are unremarkable except as noted in HPI & below Physical Exam Constitutional: Obese appearing male in mild distress. Not using any accessory muscles. Nasal cannula in place. Eyes: PERRL, conjunctivae normal, anicteric sclerae ENMT: external ear and nose normal, oropharynx normal Respiratory: Diminished bilaterally. Mild rhonchi noted bilaterally. No use of accessory muscles. Cardiovascular: RRR, no murmur, no edema Gastrointestinal (Abdomen): normal bowel sounds, soft, nontender, no hepatosplenomegaly Musculoskeletal: Diffusely weak in the upper and lower extremities. No clubbing. Skin: no rashes, warm and dry Neurologic: CN's II-XI intact bilaterally Psychiatric: A+Ox3, euthymic affect Results & Data Results & Data ([facility]) Vital Signs (Past 12 Hours) Vital Signs Temp Pulse Pulse Resp BP BP BP 06/06/20 14:28 97.5 F L 101 H 22 144/91 H 06/06/20 14:24 89 30 H 165/77 H 06/06/20 13:00 90 27 H 134/96 06/06/20 11:58 94 H 30 H 127/91 06/06/20 10:30 112 H 21 137/85 06/06/20 10:00 110 H 12 133/89 06/06/20 09:30 103 H 26 H 131/78 06/06/20 09:19 106 H 25 H 127/78 06/06/20 09:10 115 H 23 06/06/20 08:50 06/06/20 08:40 97.9 F 126 H 25 H 175/101 H 06/06/20 08:37 130 H 18 175/101 H Pulse Ox 06/06/20 14:28 94 06/06/20 14:24 95 06/06/20 13:00 96 06/06/20 11:58 96 06/06/20 10:30 95 06/06/20 10:00 96 06/06/20 09:30 96 06/06/20 09:19 96 06/06/20 09:10 94 06/06/20 08:50 94 06/06/20 08:40 89 L 06/06/20 08:37 90 I reviewed the records from [facility], personally reviewed the CT chest imaging, labs and vital signs. PG Care Time/CCT Total # of Minutes Spent Total Time Spent with Patient: Total time spent is greater than 50% in coordination of care (as documented) at patient's floor/unit and/or counseling patient: Coding Level of Care Code 76986 Inpt Consult Level 5 Diagnoses Acute respiratory failure with hypoxia J96.01 Dyspnea on exertion R06.00 Hypoxia R09.02 Pulmonary embolus I27.82 Pulmonary embolism type: other Chronicity: chronic Acute cor pulmonale presence: unspecified Obesity E66.9 Obesity type: due to excess calories Body mass index: BMI 33.0-33.9 Serious obesity comorbidity presence: with serious comorbidity Pneumonia due to COVID-19 virus U07.1; J12.82 Pneumonitis J18.9 Lung abscess J85.2
--- NOTE | 2020-06-06 19:15 | Communication Note ---
Date of Service: June 06, 2020 TRANSFER SUMMARY: Current Inpatient Medications Acetaminophen (Acetaminophen 325 Mg Tab) 650 mg PO Q4H PRN PRN Reason: Pain (Scale Score 1-3) Stop: 07/06/20 14:22 Apixaban (Apixaban 5 Mg Tablet) 5 mg PO BID [facility] Stop: 07/06/20 20:59 Bisacodyl (Bisacodyl 10 Mg Supp) 10 mg AK DAILY PRN PRN Reason: Constipation Stop: 07/06/20 14:22 Diphenhydramine HCl (Diphenhydramine Capsule 25 Mg Cap) 25 mg PO BID PRN PRN Reason: Itching Stop: 07/06/20 14:22 Docusate Sodium (Docusate Sodium 100 Mg Cap) 100 mg PO BID [facility] Stop: 07/06/20 20:59 Meropenem 500 mg/ Syringe 10 mls @ 2 mls/min IV Q6H [facility]; Protocol Stop: 06/13/20 19:59 Magnesium Hydroxide (Magnesium Hydroxide Susp 30 Ml Udc) 30 ml PO DAILY PRN PRN Reason: Constipation Stop: 07/06/20 14:22 Melatonin (Melatonin 3 Mg Tab) 6 mg PO HS [facility] Stop: 07/06/20 20:59 Metoprolol Tartrate (Metoprolol Tartrate 25 Mg Tab) 75 mg PO BID [facility] Stop: 07/06/20 20:59 Miscellaneous Information (Meropenem Consult Acitve) 1 ea N/A UD PRN PRN Reason: Consult Stop: 07/06/20 12:16 Multivitamins/Minerals (Cerovite Adv Formula Tab) 1 tab PO DAILY [facility] Stop: 07/07/20 08:59 Ondansetron HCl (Ondansetron Inj 2 Mg/Ml 2 Ml Vial) 4 mg IV Q4H PRN PRN Reason: Nausea And Vomiting Stop: 07/06/20 14:22 Pantoprazole Sodium (Pantoprazole 40 Mg Tab) 40 mg PO DAILYBB [facility] Stop: 07/07/20 06:29 Polyethylene Glycol (Polyethylene (Miralax) 17 Gm Pack) 17 gm PO QDL PRN PRN Reason: Constipation Stop: 07/06/20 14:22 Senna/Docusate Sodium (Docusate Sodium/Senna 50/8.6mg Tab) 1 tab PO QDL [facility] Stop: 07/06/20 14:59 Last Admin: 03/15/21 16:01 Dose: 1 tab Documented by: Tamsulosin HCl (Tamsulosin Hcl 0.4 Mg Cap) 0.4 mg PO HS [facility] Stop: 07/06/20 20:59 Trazodone HCl (Trazodone Hcl 50 Mg Tab) 50 mg PO HS [facility] Stop: 07/06/20 20:59 Vitamin D (Cholecalciferol 1,000 Units 25 Mcg Tab) 2,000 units PO DAILY [facility] Stop: 07/07/20 08:59 The patient is a 45-year-old man presenting to the hospital with increased shortness of breath and fatigue. He recently had a lengthy hospitalization at [facility] in [place] for acute COVID-19 infection with intubation. His hospital course was complicated by right spontaneous pneumothorax, right sided lung abscess and critical illness myopathy with pulmonary embolism. He was also asked intubated for an extended period of time and did not require tracheostomy. He also had an iatrogenic placement of a pneumothorax catheter subdiaphragm on 04/17 which was then replaced without incident. The patient was discharged to an LTAC for continued pulmonary rehab and then a couple weeks later [facility] from where he presents. In the last 48 hours he began noticing worsening dyspnea on exertion. Specifically he was able to walk 100 feet without feeling any significant shortness of breath with a walker however this morning when evaluated by Occupational Therapy he was barely able to dress himself without significant exertion. His oxygen sats notably dropped in the 70s while he was on 2 L/min of oxygen supplementation via nasal cannula. In the ER he was found to be 89% on 2 L/min oxygen supplementation with heart rates in the 130s to 140s with minimal exertion. His heart rate come down to the low 100s at rest. A CTA of the chest revealed no evidence of pulmonary embolus in the main lobar or segmental segmental pulmonary arteries with increasing groundglass consolidation throughout the lungs on both sides as compared to 06/03/[address] This was suggestive of infectious/inflammatory pneumonitis. 3 large ovoid low- density lesions at both lung bases consistent with cavitary pneumonia or sequelae of septic emboli are present with neoplasm considered less likely but not excluded. A trace left pleural effusion was also persistent. He was admitted to the hospitalist service and given 1 dose of prednisone 40 mg. Meropenem was given for concern of infection. Pulmonary was consulted. The pulmonary recommendation was strongly in support of transferring to a tertiary care center and her forest economics professor did discuss the case with the thoracic surgeon on-call at [facility] who did not feel surgery was warranted at this time unless there was timothy evidence of an empyema. The patient does have resolving COVID-19 pneumonitis and has had a history of heavy metal pneumonitis/hypersensi tivity pneumonitis which is difficult to rule out at this time. He may require a lung biopsy at some point to determine the etiology of the groundglass opacity which would not be something offered at this institution. Bronchoscopy may also be considered prior to biopsy to rule out further infectious etiology. Steroids were discontinued given the concern for acute bacterial infection. At time of discharge she was still tachycardic with a heart rate in the low 100s, blood pressure was stable and he was mentating and ambulating at baseline and tolerating p.o. He was discharged to [facility] into the care of the hospitalist service with the accepting physician Dr. Gonzalez. Laura Mccain DO [facility] Hospitalist
--- NOTE | 2020-06-06 19:20 | Discharge Summary ---
Date of Service June 06, 2020 Admission HPI Per Admitting Provider This is a 45-year-old male with PMHx of history of COVID-19 infection in late February into March, works in the [employer] business, and admits that on April 03 accidentally inhaled metal particles while working without wearing respiratory mask, causing respiratory sequelae. After that point in time, he sought care at a [facility], where he was referred to [facility] where he was then diagnosed with Covid 19 and was sent to [place] subsequently requiring intubation. His hospital course was prolonged at [facility], where he was hospitalized from 04/08-05/07. He was found to have a suspected lung abscess whic h was treated with meropenem x3 weeks,, developed pulmonary embolism and started on Eliquis needing to be given x3 months, and completed treatment with remdesivir, Decadron and antibiotics for COVID-19 pneumonia. During his hospitalization, extubated trialed on 3 separate trials, successful the last time. He was discharged to [facility] for pulmonary rehab. After 2 week stay there he was discharged for inpatient PT/OT. The patient arrived to [facility] on 05/27/20, and has been doing inpatient rehab there. He was very successful and advancing well until last Saturday, 06/03, where he developed Left flank pain, was sent to the ER and diagnosed with a kidney stone. His pain is minimal at this point, localized to the LLQ. No hematuria or dysuria, urine is slightly dark. He was sent back to [facility] for the weekend however did not participate in therapy on Saturday. On Saturday he noticed worsening dyspnea on exertion. Previously, he able to walk 100 feet without feeling any significant shortness of breath with a walker. This morning he was evaluated by OT and being graded for ADLs, but he was barely able to dress himself without significant exertion. His O2 sats dropped to the 70s while he was on 2 L via NC. Here in the ER he is found to be 89% on 2 L with heart rates in the 130s to 140s with minimal exertion. CTA conducted shows groundglass opacities despite previous treatment therapies, it was negative for PE however does identify old septic pulmonary emboli. CT abdomen and pelvis reveals known nephrolithiasis. Speaking of this, he was in the ER approximately 3 days ago where he was diagnosed with nephrolithiasis. He has been treated with meropenem IV here in the ER. Admission Exam Per Admitting Provider General: awake, alert, no apparent distress, obese, BMI 35 Head: Normocephalic, atraumatic ENT: PERRL, EOMI, no pharyngeal exudate, mucous membranes moist Chest: Clear to auscultation. diminished at left base, on 2 L via NC with O2 sat at 96%, no adventitious breath sounds Cardiac: Regular rate and rhythm, no murmur, no JVD, normal peripheral pulses, good capillary refill Abdominal: NABS x 4 quadrants, soft, nondistended, nontender to palpation, no rebound or guarding Extremities: Normal inspection, no peripheral edema or erythema, calfs nontender to palpation Psych: Normal mood and affect Neuro: AAO x 3, strength intact bilaterally and rated 5/5, no motor deficits, speech is clear, no peripheral sensory deficits Principal Diagnosis Acute hypoxic respiratory failure post COVID pneumonitis Lung abscesses Discharge Data Allergies Allergy/AdvReac Type Severity Reaction Status Date / Time No Known Allergies Allergy Unverified 06/06/20 08:45 Consultations 06/06/20 11:24 ED Decision to Admit Stat 06/06/20 14:08 Consult Pulmonology Routine 06/06/20 14:23 Consult Case Management - Discharge Planning Routine 06/06/20 19:05 Burn CD for patient Stat Ordered Studies 06/06/20 08:50 CT angio chest PE protocol Stat Hospital Course (1) Acute respiratory failure with hypoxia: (2) Pneumonitis: (3) History of COVID-19: (4) Obesity: (5) Pulmonary embolus: (6) Hypomagnesemia: (7) Hypokalemia: The patient is a 45-year-old man presenting to the hospital with increased shortness of breath and fatigue. He recently had a lengthy hospitalization at [facility] in [place] for acute COVID-19 infection with intubation. His hospital course was complicated by right spontaneous pneumothorax, right sided lung abscess and critical illness myopathy with pulmonary embolism. He was also asked intubated for an extended period of time and did not require tracheostomy. He also had an iatrogenic placement of a pneumothorax catheter subdiaphragm on 04/17 which was then replaced without incident. The patient was discharged to an LTAC for continued pulmonary rehab and then a couple weeks later was [facility] from where he presents. In the last 48 hours he began noticing worsening dyspnea on exertion. Specifically he was able to walk 100 feet without feeling any significant shortness of breath with a walker however this morning when evaluated by Occupational Therapy he was barely able to dress himself without significant exertion. His oxygen sats notably dropped in the 70s while he was on 2 L/min of oxygen supplementation via nasal cannula. In the ER he was found to be 89% on 2 L/min oxygen supplementation with heart rates in the 130s to 140s with minimal exertion. His heart rate come down to the low 100s at rest. A CTA of the chest revealed no evidence of pulmonary embolus in the main lobar or segmental segmental pulmonary arteries with increasing groundglass consolidation throughout the lungs on both sides as compared to 06/03/[address] This was suggestive of infectious/inflammatory pneumonitis. 3 large ovoid low- density lesions at both lung bases consistent with cavitary pneumonia or sequelae of septic emboli are present with neoplasm considered less likely but not excluded. A trace left pleural effusion was also persistent. He was admitted to the hospitalist service and given 1 dose of prednisone 40 mg. Meropenem was given for concern of infection. Pulmonary was consulted. The pulmonary recommendation was strongly in support of transferring to a tertiary care center and her document management analyst did discuss the case with the thoracic surgeon on-call at [facility] who did not feel surgery was warranted at this time unless there was timothy evidence of an empyema. The patient does have resolving COVID-19 pneumonitis and has had a history of heavy metal pneumonitis/hypersensitivity pneumonitis which is difficult to rule out at this time. He may require a lung biopsy at some point to determine the etiology of the groundglass opacity which would not be something offered at this institution. Bronchoscopy may also be considered prior to biopsy to rule out further infectious etiology. Steroids were discontinued given the concern for a cute bacterial infection. At time of discharge she was still tachycardic with a heart rate in the low 100s, blood pressure was stable and he was mentating and ambulating at baseline and tolerating p.o. He was discharged to [facility] into the care of the hospitalist service with the accepting physician Dr. Gonzalez. Total Time Total Time Spent Total Time Spent (In Minutes): 60 Total Time Includes: Examination of the Patient, Discharge Planning, Medication Reconciliation and Communication With Other Providers Discharge Plan Discharge Items Patient Disposition: Transfer Acute Care Hospital Reason For Visit: SHORTNESS OF BREATH Discharge Diagnosis: Acute hypoxic respiratory failure post COVID pneumonitis Lung abscesses Condition on Discharge: Good Activity: Resume your previous activity Non-emergency contact: Primary Care Provider Call non-emergency contact if: you have any medication questions, your symptoms worsen, your pain is not controlled, your pain is worsening, your pain is unusual for you, your pain is concerning for you and you have a fever Follow-up/Referrals: Torito Bhatt DO [Primary Care Provider] - Diet: Heart Healthy Addtl Attending Provider Instructions: You are being transferred to a tertiary care center for further workup and treatment. It is recommended that you follow-up with your primary care provider within one week of discharge from your hospital stay. It was a pleasure taking care of you! Please call if you have any questions or problems. You can reach a [facility] hospitalist on duty at [facility] 24 hours a day by calling [phone]. Take care of yourself. Laura Mccain DO [facility] Pending Studies at Discharge: Yes Stand-Alone Forms: My [facility] Skilled Items Patient informed of condition?: Yes DNR: No Discharge Level of Care: Other Communicable Disease: No Discharge Prognosis: Other Lines: None Urinary Catheter: No Medications and DC Order Prescriptions: Continued apixaban 5 mg Tablet 5 mg PO BID RF: 0 pantoprazole 40 mg Tablet,Delayed Release (Dr/Ec) 40 mg PO DAILYBB RF: 0 docusate sodium 100 mg Capsule 100 mg PO BID RF: 0 magnesium hydroxide [Milk of Magnesia] 400 mg/5 mL Suspension 30 ml PO DAILY PRN (Reason: Constipation) RF: 0 bisacodyl 10 mg Suppository 10 mg MD DAILY PRN (Reason: Constipation) RF: 0 sennosides-docusate sodium [Senokot-S] 8.6-50 mg Tablet 1 tab-cap PO .QLUNCH PRN (Reason: Constipation) RF: 0 polyethylene glycol 3350 [Miralax] 17 gram/dose Powder 17 g PO .QLUNCH PRN (Reason: Constipation) RF: 0 acetaminophen [Tylenol] 325 mg Tablet 650 mg PO Q4H PRN (Reason: Pain (Scale Score 1-3)) RF: 0 cholecalciferol (vitamin D3) 50 mcg (2,000 unit) Capsule 50 mcg PO DAILY RF: 0 diphenhydramine HCl 25 mg Capsule 25 mg PO BID PRN (Reason: Itching) RF: 0 melatonin 3 mg Tablet 6 mg PO HS RF: 0 trazodone 50 mg Tablet 50 mg PO HS RF: 0 multivitamin with minerals [Multiple Vitamin-Minerals] Tablet 1 tab PO DAILY RF: 0 metoprolol tartrate 50 mg Tablet 75 mg PO BID RF: 0 tamsulosin [Flomax] 0.4 mg capsule 0.4 mg PO HS RF: 0 Admission Data Admit Date/Time: 06/06/20 12:50 Attending Provider: Laura Mccain Admit Provider: Laura Mccain Primary Care Provider: Torito Bhatt Other Providers: Laura Mccain ; Garry Wooten
[2020-06-06] MEDS: MEROPENEM 500 MG in SYRINGE 0 ML IV SCH (20:37)
[2020-06-06] MEDS ORDERED: APIXABAN 5 MG TABLET PO SCH (21:00)
[2020-06-06] MEDS ORDERED: TAMSULOSIN HCL 0.4 MG CAP PO SCH (21:00)
[2020-06-06] MEDS ORDERED: traZODone HCL 50 MG TAB PO SCH (21:00)
[2020-06-06] MEDS ORDERED: DOCUSATE SODIUM 100 MG CAP PO SCH (21:00)
[2020-06-06] MEDS ORDERED: METOPROLOL TARTRATE 25 MG TAB PO SCH (21:00)
[2020-06-06] MEDS ORDERED: MELATONIN 3 MG TAB PO SCH (21:00)
[2020-06-06 21:11] LABS: Appearance Urine Clear (Clear); Bilirubin Urine Negative (Negative); Blood Urine Negative (Negative); Color Urine Yellow; Glucose Urine UA Negative (Negative); Ketones Urine Negative (Negative); Leukocyte Esterase Urine Negative (Negative); Nitrite Urine Negative (Negative); Protein Urine Negative (Negative); Specific Gravity Urine 1.025 (1.000-1.030); Urobilinogen Urine Negative (Negative); pH Urine 7.5 (4.5-7.5)
[2020-06-07] MEDS: MEROPENEM 500 MG in SYRINGE 0 ML IV SCH (00:56)
--- NOTE | 2020-06-07 06:16 | Electrocardiogram Report ---
Test Reason : Blood Pressure : / mmHG Vent. Rate : 123 BPM Atrial Rate : 123 BPM P-R Int : 144 ms QRS Dur : 084 ms QT Int : 322 ms P-R-T Axes : 031 -02 031 degrees QTc Int : 460 ms Poor data quality, interpretation may be adversely affected Sinus tachycardia Left ventricular hypertrophy with repolarization abnormality Abnormal ECG When compared with ECG of 03-JUN-2020 20:42, No significant change was found Confirmed by Ravinder Lim ([id number]) on 06/07/2020 6:16:25 AM Referred By: Confirmed By:Ravinder Lim
[2020-06-07] MEDS ORDERED: PANTOprazole 40 MG TAB PO SCH (06:30)
[2020-06-07] MEDS ORDERED: CHOLECALCIFEROL 1,000 UNITS 25 MCG TAB PO SCH (09:00)
[2020-06-07] MEDS ORDERED: CEROVITE ADV FORMULA TAB PO SCH (09:00)
== END 2020-06-07 01:22 | disposition short-term general hospital (02) | DRG 189 ==
LOC: ED 08:32 → 2N 12:50